=== PATIENT | female | born 1955 | race American Indian/Alaskan Native ===

== ENCOUNTER 2021-05-24 10:55 | Outpatient (CLI) | payer OTHER ==
--- NOTE | 2021-05-24 13:22 | XRay Report ---
XR spine lumbosacral 2-3V INDICATION / CLINICAL INFORMATION: BACK PAIN. COMPARISON: None available. FINDINGS: BONES/JOINT(S): No acute fracture or subluxation. There is moderate disc height loss at L3-4 with brenden ctive endplate sclerosis and osteophyte formation. There is no additional significant disc height los s. SOFT TISSUES: No significant abnormality. ADDITIONAL FINDINGS: None. Signer Name: Jose Cruz MD Signed: 05/24/2021 1:17 PM Workstation Name: [email or web address] [place] [id number]
--- NOTE | 2021-05-24 13:24 | XRay Report ---
XR knee 1-2V LT INDICATION / CLINICAL INFORMATION: LEFT KNEE PAIN. COMPARISON: None available. FINDINGS: BONES/JOINT(S): No acute fracture or subluxation. 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 SOFT TISSUES: No significant abnormality. ADDITIONAL FINDINGS: None. Signer Name: Jose Cruz MD Signed: 05/24/2021 1:19 PM Workstation Name: [employer] [id number]
== END 2021-05-24 10:56 | disposition home or self-care (01) ==
LOC: XRAY 10:55
PROVIDERS: ATTEND Internal Medicine
DX: M17.12 Unilateral primary osteoarthritis, left knee (principal); M25.78 Osteophyte, vertebrae
CPT/HCPCS: 72100